=== PATIENT | female | born 1950 | race Caucasian/White ===

== ENCOUNTER → 2016-07-27 | Outpatient (CLI) | payer OTHER ==
--- NOTE | 2016-07-27 11:17 | US ---
Left Lower Extremity Deep Venous Duplex Ultrasound July 27, 2016 Indication: Intermittent left foot swelling. Technique: The left lower extremity deep venous system and veins of the proximal calf were interrogat ed with raymundo-scale, color, and spectral Doppler imaging. Findings: The common femoral, femoral, popliteal, greater saphenous and posterior tibial and peroneal veins of the calf normally compress on raymundo-scale imaging. The deep venous system and superficial ve ins of the proximal calf have normal flow and expected variability. No fluid collection, edema, or va ricose veins. Impression: Negative. No deep venous thrombosis.
== END ==
LOC: FIMAGING 09:48
PROVIDERS: ATTEND Family Medicine
DX: R60.0 Localized edema (principal)

== ENCOUNTER → 2016-08-31 | Outpatient (CLI) | payer OTHER | LOC: FIMAGING 10:25 | PROVIDERS: ATTEND Family Medicine | DX: Z13.820 Encounter for screening for osteoporosis (principal); M85.80 Other specified disorders of bone density and structure, unspecified site ==

== ENCOUNTER → 2017-07-03 | Outpatient (CLI) | payer OTHER | LOC: FIMAGING 09:48 | PROVIDERS: ATTEND Family Medicine | DX: Z12.31 Encounter for screening mammogram for malignant neoplasm of breast (principal) | CPT/HCPCS: G0202 ==

== ENCOUNTER → 2018-07-04 | Outpatient (CLI) | payer OTHER | LOC: FIMAGING 09:50 | PROVIDERS: ATTEND Family Medicine | DX: Z12.31 Encounter for screening mammogram for malignant neoplasm of breast (principal) ==